=== PATIENT | female | born 1970 | race Two or more races ===

== ENCOUNTER 2019-03-31 16:30 | Emergency (ER) | payer SELFPAY ==
[~2019-03-31] VITALS: Ht 167.6 cm; Wt 59.0 kg
[2019-03-31 17:11] VITALS: BP 101/52
[2019-04-01] MEDS ORDERED: ACETAMINOPHEN/CODEINE#3 (300/30mg) TAB PO ONE (00:30)
== END 2019-04-01 01:33 | disposition home or self-care (01) ==
LOC: EDBD 16:30 → ER 16:37 → EDSEX 16:37 → ER 04-01 01:33
DX: M62.838 Other muscle spasm (principal); H50.9 Unspecified strabismus; V43.52XA Car driver injured in collision with other type car in traffic accident, initial encounter; Y93.89 Activity, other specified; Y99.8 Other external cause status; Y92.410 Unspecified street and highway as the place of occurrence of the external cause
CPT/HCPCS: 70450; 72125

== ENCOUNTER 2020-01-14 20:41 | Emergency (ER) | payer OTHER ==
[~2020-01-14] VITALS: Ht 167.6 cm; Wt 61.2 kg
[2020-01-14 20:51] VITALS: BP 147/76
[2020-01-14] MEDS ORDERED: IBUPROFEN 800 MG TAB PO ONE (22:15)
[2020-01-14] MEDS ORDERED: ACETAMINOPHEN 500 MG TAB PO ONE (22:15)
== END 2020-01-14 22:24 | disposition home or self-care (01) ==
LOC: ER 20:41
DX: S92.344A Nondisplaced fracture of fourth metatarsal bone, right foot, initial encounter for closed fracture (principal); S93.401A Sprain of unspecified ligament of right ankle, initial encounter; W10.8XXA Fall (on) (from) other stairs and steps, initial encounter; Y93.01 Activity, walking, marching and hiking; Y92.89 Other specified places as the place of occurrence of the external cause; Y99.8 Other external cause status
CPT/HCPCS: 29515; 73610; 73630